=== PATIENT | female | born 1980 | race Caucasian/White ===

== ENCOUNTER → 2020-01-10 09:59 | Outpatient (CLI) | payer OTHER, SELFPAY ==
--- NOTE | ~2020-01-10 | XR_ITS ---
EXAMINATION: XR fl inj elbow LT for MR/CT DATE: 01/10/2020 11:25 INDICATION: Tear of ulnar collateral ligament of left elbow. No prior surgery. TECHNIQUE: A time-out was performed to verify the patient's name, date of , and procedure to b e performed. The procedure including the risks, benefits, and alternatives was discussed with the pat ient. Risks discussed included bleeding and infection. The patient understood the risks and agreed to proceed. The skin overlying the left elbow joint was prepped and draped in usual sterile fashion. A nesthetic was administered with 1% lidocaine subcutaneously. A 23 G needle was advanced under fluoro scopic guidance into the joint. Subsequently, injectate consisting of 2 mL of 1:200 Multihance, 1:4 1% lidocaine, and 1:4 Omnipaque 240 was instilled. The needle was removed and the entry site was bianca aned and dressed. There were no immediate complications. Fluoroscopy exposure time was 0.1 minutes. The total number of images was 2. FINDINGS: Real-time fluoroscopy demonstrates the needle and contrast in the left elbow joint. IMPRESSION: 1. Successful left elbow joint injection of contrast for subsequent MR arthrography. Reviewed, dictated and finalized at location A. IMPRESSION: 1. Successful left elbow joint injection of contrast for subsequent MR arthrogr aphy.
--- NOTE | ~2020-01-10 | MR_ITS ---
EXAMINATION: MR elbow LT w con DATE: 01/10/2020 11:47 INDICATION: Tear of the ulnar collateral ligament of the left elbow TECHNIQUE: Magnetic resonance imaging (MRI) arthrogram of the left elbow was performed following int ra-articular gadolinium contrast injection and without intravenous contrast. Details of the glenohume ral joint injection have been dictated separately. Sequences included sagittal PD-weighted FSE and a xial, sagittal and coronal T2-weighted FS FSE and T1-weighted FS FSE. COMPARISON: None. FINDINGS: Osseous/other: Normal alignment. Normal marrow signal with no marrow edema, fracture, osteochondral lesion or patho logic marrow replacing process. Tendons: Triceps, biceps brachii and brachialis tendons are normal. Mild tendinopathy with mild surrounding e bekah but without discrete tear at the lateral epicondylar origin of the common flexor tendon wad. The common extensor tendon wad is normal. Ligaments: The medial and lateral collateral ligament complexes are normal. Cubital tunnel: Cubital tunnel is unremarkable with normal signal and caliber of the ulnar nerve. Fluid: There is extravasation of a small amount of the intra-articular contrast which extends distally along the anterolateral margin of the proximal radius. No loose bodies identified. IMPRESSION: 1. Mild medial epicondylitis with mild tendinopathy without discrete tear at the medial epicondylar o rigin of the common flexor tendon wad. Reviewed, dictated and finalized at location A. IMPRESSION: 1. Mild medial epicondylitis with mild tendinopathy without discrete tear at th e medial epicondylar origin of the common flexor tendon wad.
== END ==
PROVIDERS: Visit Provider Internal Medicine
DX: S53.442D Ulnar collateral ligament sprain of left elbow, subsequent encounter (principal); X58.XXXD Exposure to other specified factors, subsequent encounter
CPT/HCPCS: 20605; 73222; 77002; A9577; Q9966

== ENCOUNTER 2025-02-28 12:10 | Outpatient (CLI) | payer BC, SELFPAY ==
--- NOTE | ~2025-02-28 | XR_ITS ---
EXAMINATION: XR chest 2V, 02/28/2025 12:33 CDT HISTORY: CHRONIC COUGH COMPARISON: No comparisons available. Technique: 2 views obtained. Findings: The lungs are clear, no effusion. No pneumothorax. Heart is normal size. Mediastinal and hilar contours are within normal limits. Bony thorax no acute abnormality. Impression: No acute cardiopulmonary abnormality. Reviewed, dictated and finalized at location P. Impression: No acute cardiopulmonary abnormality.
== END 2025-02-28 12:11 | disposition home or self-care (01) ==
PROVIDERS: PCP Internal Medicine; Visit Provider Internal Medicine
DX: R05.3 Chronic cough (principal)
CPT/HCPCS: 71046